=== PATIENT | female | born 1975 | race Caucasian/White ===

== ENCOUNTER 2019-08-20 15:51 | Emergency (ER) | payer SELFPAY ==
[2019-08-20] MEDS ORDERED: Adacel (T-DAP) 0.5 ML SYRINGE ONE (16:19)
[2019-08-20] MEDS ORDERED: Acetaminophen 500 MG TAB ONE (16:39)
[2019-08-20] MEDS ORDERED: Ibuprofen 800 MG TAB ONE (16:39)
--- NOTE | 2019-08-20 16:46 | CT ---
CT CERVICAL SPINE WITH CORONAL AND SAGITTAL REFORMATIONS AND NO IV CONTRAST: HISTORY: Trauma, neck pain FINDINGS: There is loss of cervical lordosis with mild reversal. No fracture, subluxation or facet malalignment is identified. No prevertebral soft tissue swelling is apparent. The visualized lung apices are unremarkable. There is a 15 mm nodule posterior to the right inferior pole of the thyroid gland. Correlation with t he parathyroid hormone levels and radionuclide parathyroid scan is recommended to evaluate for a parathyroid adenoma. If these are negative, contrast-enhanced CT scan of the neck should be performed . IMPRESSION: No CT evidence for fracture or traumatic subluxation.
== END 2019-08-20 17:14 | disposition home or self-care (01) ==
LOC: MADERS 15:51
DX: S01.01XA Laceration without foreign body of scalp, initial encounter (principal); F32.9 Major depressive disorder, single episode, unspecified; F41.9 Anxiety disorder, unspecified; F17.210 Nicotine dependence, cigarettes, uncomplicated; Z23 Encounter for immunization; X58.XXXA Exposure to other specified factors, initial encounter
CPT/HCPCS: 12001; 70450; 72125; 90471; 90715; L0120